=== PATIENT | male | born 1980 | race Caucasian/White ===

== ENCOUNTER → 2024-06-23 09:06 | Outpatient (CLI) | payer OTHER, SELFPAY ==
[2024-06-23 09:27] LABS: Hemoglobin 14.8 g/dL (13.5-17.5); Mean Corpuscular HGB Conc 35.1 % (30-36); Mean Corpuscular Hemoglobin 30.9 PG (26-34); Platelet Count 166 X10^3/uL (150-400); Red Blood Cell Count 4.78 X10^6/uL (4.5-5.9); Red Cell Distribution Width 13.7 % (11.6-14.8); White Blood Cell Count 4.6 X10^3/uL (4.5-11.0)
[2024-06-23 09:44] LABS: Hemoglobin A1C% w Est Avg Glu 4.6 % (4.0-6.0)
[2024-06-23 10:10] LABS: Alanine Aminotransferase 31 IU/L (<50); Albumin 4.4 g/dL (3.5-5.0); Albumin Globulin Ratio 1.7 (1.0-2.8); Alkaline Phosphatase 50 U/L (38-126); Aspartate Aminotransferase 26 IU/L (17-59); BUN Creatinine Ratio 14.3 (6-22); Bilirubin Total 0.9 mg/dL (0.2-1.3); Blood Urea Nitrogen 14 mg/dL (9-20); Calcium 8.9 mg/dL (8.4-10.2); Carbon Dioxide 29 mmol/L (22-32); Chloride 103 mmol/L (98-107); Cholesterol 182 mg/dL (140-199); Estimated Glomerular Filt Rate > 60 mL/min (>60); Globulin 2.6 g/dL (1.7-4.1); Glucose 99 mg/dL (70-100); HDL Cholesterol 46 mg/dL (40-60); HEMOLYSIS < 15 (0-50); LDL Cholesterol Calculated 120 mg/dL (<100); Sodium 137 mmol/L (137-145); Triglycerides 81 mg/dL (35-150)
== END ==
PROVIDERS: PCP Family Medicine; Referring Provider Family Medicine; Visit Provider Family Medicine
DX: Z13.220 Encounter for screening for lipoid disorders (principal); Z13.1 Encounter for screening for diabetes mellitus; Z13.228 Encounter for screening for other metabolic disorders; Z13.9 Encounter for screening, unspecified
CPT/HCPCS: 36415; 80053; 80061; 83036; 85027

== ENCOUNTER 2024-09-23 08:51 | Day surgery (SDC) | payer OTHER, SELFPAY ==
[2024-09-17 12:40] VITALS: BMI 27.5
[2024-09-23 09:26] VITALS: BP 130/86; PULSE 58; RESP 16; TEMP 36.6; O2SAT 100; BMI 27.5
[2024-09-23] MEDS: LACTATED RINGERS 1,000 ML 42 ML IV (09:38)
[2024-09-23] MEDS: ACETAMINOPHEN 325 MG TABLET 975 MG PO (09:45)
--- NOTE | 2024-09-23 10:48 | P.OP_ITS ---
Operative Date/Time/Diagnoses Date of procedure: 09/23/24 Time of procedure: 10:48 Pre-op diagnosis: Recurring ingrowing toenails right and left great toes Post-op diagnosis: same Procedure & Clinicians Procedure: Total matrixectomy by open approach right and left great toenails. Same procedure(s) as scheduled: Yes Indications: 44-year-old male a recurring ingrowing toenails to both great toes. He has had chemical matrixectomy in the past and continues to have recurrence of growth with painful spicules to the central as well as borders of both great toenails. Conservative measures failed to alleviate the condition and he wished to have surgical intervention at this time. We spoke with the risks and potential complications as well as alternatives and expected outcomes. Consent was signed and there were no contraindications to the procedure at this time. Surgeon: Clare Cerda Click Yes if Unassisted: Yes Anesthesia Type: MAC +/- and Sedation Operative Notes Findings: Nail spicules of varying sizes noted on both great toenails. Closure Type: primary Specimen(s): none sent Applied: none Estimated Blood Loss (mL): 5 Blood products transfused: none Procedure in detail: Patient was brought to the operating placed on table position. On he was appropriately padded and secured on the operative table. On after surgical time-out was performed anesthesiologist rendered anesthesia with sedation it to him and feet the were prepped and draped in usual aseptic manner. Using the recorded injectables, anesthesia was delivered locally to the great toe on both feet. Left foot hallux: Fatou drain was used as a tourniquet around the base of the hallux and clipped with a hemostat. After checking for anesthesia a Ogden elevator was used to further delineate the spicules on the medial and lateral borders of the nail and look into the central aspect of the previously healed nail fold to determine if any nail spicules were seen here. Where the nails were seen, these were gently elevated and removed with the use of hemostat. Watching where these were derived from, very carefully, a 15 blade was used to make an incision in a slightly angular manner along the proximal lateral edge and proximal medial edge of nail fold of the hallux. This was followed by gentle dissection into the medial and lateral edge borders where the next incision was made down to bone. This allowed for removal of the shiny white tissue overlying the area consistent with the matrix cells. This then was brought across centrally to remove that as well and then to the other side of the nail fold where once again the tissue was taken out of the corner. After this was removed the area was gently curetted in the corners and across the back to verify no matrix cells were present. The area was irrigated with normal saline copiously the tourniquet was deflated and a prompt hyperemic response was seen to the foot. Tourniquet time was approximately 14 minutes. Primary closure was performed of skin to skin and skin along the central aspect to the residual tissue on the more proximal to central aspect of the bed where the nail plate had been sitting. This was performed 4-0 nylon. The same procedure was performed to the right foot hallux. Tourniquet time was approximately 11 minutes. Dressing was placed on the great toes consisting of Xeroform, 4x4s, conform, Coban, stockinette, and postoperative shoes. Complications: none Post-operative Condition: stable Disposition: PACU Plan for aftercare: Following a period of postoperative monitoring, the patient will be discharged to home on written and oral postoperative instructions including keeping the dressing dry and intact, ambulation with caution bilaterally, and elevating the feet when seated at home. DVT prevention techniques have been reviewed. [place] 5/325 mg tablets to be taken 1-2 tablets every 6 hours as needed for breakthrough postsurgical pain is sent to [facility] pharmacy in [place].
--- NOTE | 2024-09-23 10:48 | PM.PREOP ---
Pre-operative Note Interval Note History & Physical reviewed/Exam performed by Physician: Yes Changes to H&P: No
[2024-09-23] MEDS: CEFAZOLIN 2 GM/100 ML PREMIX 100 ML IV (11:00)
[2024-09-23] MEDS: BUPIVACAINE 0.5% (PF) 30 ML VIAL INJ (11:10)
--- NOTE | 2024-09-23 11:21 | SUR.OPER ---
Supine on padded OR bed, head on pillow, arms secured on padded arm boards at <90 degrees abduction, legs uncrossed, safety belt at torso.
[2024-09-23 12:19] VITALS: BP 113/70; PULSE 48; RESP 15; TEMP 35.8; O2SAT 99
[2024-09-23 12:20] VITALS: BP 108/73; PULSE 51; RESP 10; O2SAT 98
[2024-09-23 12:25] VITALS: BP 114/73; PULSE 47; RESP 14; O2SAT 100
[2024-09-23 12:30] VITALS: BP 118/78; PULSE 56; RESP 50; O2SAT 100
[2024-09-23] MEDS: HYDROCODONE/ACET 5/325 TABLET 1 TAB PO (12:32)
[2024-09-23 12:35] VITALS: BP 112/85; PULSE 53; RESP 21; O2SAT 98
== END 2024-09-23 13:00 | disposition home or self-care (01) ==
PROVIDERS: PCP Family Medicine; Referring Provider Family Medicine; Visit Provider Podiatrist
PROC: (CPT 11750; principal; 2024-09-23 10:30)
DX: L60.0 Ingrowing nail (principal)
CPT/HCPCS: 11750 ×2; J0690; J2250; J2704; J3010